=== PATIENT | male | born 1995 | race Caucasian/White ===

== ENCOUNTER 2016-06-26 14:37 | Emergency (ER) | payer BC, OTHER ==
[2016-06-26 15:00] VITALS: BP 157/87; BMI 23.6
[2016-06-26] MEDS ORDERED: TORADOL 30 MG VIAL IVP ONE (15:02)
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
--- NOTE | 2016-06-26 15:28 | RAD ---
Left wrist, three views Indication: Wrist pain and deformity after fall Findings: There is an acute fracture of the distal radius demonstrating mild volar and radial angula tion with impaction there is fracture extension into the radiocarpal joint space. The radiocarpal ar ticulation is otherwise grossly maintained. There is a mildly displaced fracture of the ulnar styloi d. Impression: Mildly displaced acute fractures of the distal radius and ulnar styloid, with extension of the radial fracture into the radiocarpal joint space. Reported By:
--- NOTE | 2016-06-26 15:29 | RAD ---
Right forearm, AP and lateral Indication: Arm pain after fall. Findings: No cortical lucency or malalignment of the radius or ulna identified. No significant soft tissue abnormality. Impression: No evidence for acute right forearm fracture or subluxation. Reported By:
--- NOTE | 2016-06-26 15:29 | RAD ---
Left forearm, AP and lateral Indication: Arm pain after fall Findings: Distal radial and ulnar styloid fractures are described separately. No acute fracture or s ubluxation of the more proximal forearm identified. Impression: Distal radial and ulnar styloid fractures. No evidence for proximal radial or ulnar inju ry. Reported By:
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
[2016-06-26] MEDS ORDERED: ZOFRAN INJ 4 MG VIAL ONE (15:37)
[2016-06-26] MEDS ORDERED: MORPHINE SULFATE INJ 4 MG ONE (15:39)
[2016-06-26] MEDS ORDERED: NEOSPORIN OINT ONE ×2 (15:42→16:29)
[2016-06-26] MEDS ORDERED: ZOFRAN INJ 4 MG VIAL IVP ONE (15:44)
[2016-06-26] MEDS ORDERED: MORPHINE SULFATE INJ 4 MG IVP ONE (15:44)
--- NOTE | 2016-06-26 15:49 | CT ---
CT left wrist without contrast Indication : Wrist pain after fall Technique: 2 mm axial images with coronal and sagittal reformatted images provided without IV contra st administration . Findings: There is an intra-articular distal radial fracture, the fracture extends into the mid radi al articular surface with mild radial distraction of the radial styloid process . Multiple smaller c omminuted fracture fragments are noted adjacent to the distal radial fracture . The fracture also ex tends in a transverse orientation within the radial metaphysis . Overall the intra-articular fractur e fragments demonstrate mild volar displacement and angulation. There is a mildly comminuted, minimally displaced fracture of the ulnar styloid process. There is no fracture of the carpus. The wrist demonstrates moderate soft tissue swelling . Impression: 1.Comminuted intra-articular fracture of the distal radius with mild radial and volar angulation and displacement of largest intra-articular fracture fragment. 2. Minimally displaced, comminuted fracture of the ulnar styloid process. Reported By:
[2016-06-26] MEDS ORDERED: ZOFRAN TAB 4 MG ONE (16:31)
[2016-06-26] MEDS ORDERED: ZOFRAN TAB 4 MG PO ONE (16:32)
== END 2016-06-26 16:42 | disposition home or self-care (01) ==
LOC: ER 14:46
DX: S62.102A Fracture of unspecified carpal bone, left wrist, initial encounter for closed fracture (principal); S50.12XA Contusion of left forearm, initial encounter; W19.XXXA Unspecified fall, initial encounter; Y92.9 Unspecified place or not applicable
CPT/HCPCS: 29105; 29125; 70450; 73090; 73100; 73200; 96365; 96374; 96375; 99283; S0181; J2270; J2405

== ENCOUNTER → 2016-06-30 | Outpatient (CLI) | payer BC ==
[2016-06-26 15:00] VITALS: BP 157/87
[2016-06-30 11:45] LABS: BASOPHILS % (AUTO) 0.6 % (0.2-1.0); EOSINOPHILS # (AUTO) 0.1 x10^3/uL (0.0-0.2); EOSINOPHILS % (AUTO) 2.6 % (0.9-2.9); HEMATOCRIT 43.6 % (42.0-54.0); HEMOGLOBIN 14.7 g/dL (13.5-18.0); LYMPHOCYTES # (AUTO) 1.2 X10^3/uL (1.3-2.9); LYMPHOCYTES % (AUTO) 24.4 % (21.0-51.0); MEAN CORPUSCULAR HEMOGLOBIN 29.3 pg (27.0-34.0); MEAN CORPUSCULAR HGB CONC 33.7 g/dL (33.0-35.0); MEAN CORPUSCULAR VOLUME 86.8 fL (80.0-100.0); MEAN PLATELET VOLUME 7.3 fL (7.4-11.0); MONOCYTES # (AUTO) 0.4 x10^3/uL (0.3-0.8); MONOCYTES % (AUTO) 8.7 % (0.0-13.0); NEUTROPHILS # (AUTO) 3.2 x10^3/uL (2.2-4.8); NEUTROPHILS % (AUTO) 63.7 % (42.0-75.0); PLATELET COUNT 243 X10^3/uL (150.0-450.0); RED BLOOD COUNT 5.02 X10^6/uL (4.7-6.0)
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
[2016-06-30 11:56] LABS: ALANINE AMINOTRANSFERASE 34 Units/L (12-78); ALBUMIN 4.1 g/dL (3.4-5.0); ALKALINE PHOSPHATASE 75 Units/L (46-116); ASPARTATE AMINO TRANSFERASE 25 Units/L (15-37); BLOOD UREA NITROGEN 26 mg/dL (7-18); CALCIUM 9.3 mg/dL (8.5-10.1); CARBON DIOXIDE 31.5 mmol/L (21-32); CHLORIDE 102 mmol/L (98-107); CREATININE 1.17 mg/dL (0.70-1.30); GLUCOSE 85 mg/dL (65-99); SODIUM 140 mmol/L (136-145); TOTAL PROTEIN 8.1 g/dL (6.4-8.2); eGFR BLACK RACES > 60 (>60); eGFR NON BLACK RACES > 60 (>60)
[2016-06-30 11:57] LABS: BILIRUBIN,URINE NEGATIVE (NEGATIVE); BLOOD/HEMOGLOBIN,URINE NEGATIVE (NEGATIVE); GLUCOSE, URINE NEGATIVE (NEGATIVE); KETONES,URINE NEGATIVE (NEGATIVE); LEUKOCYTE ESTERASE ,URINE NEGATIVE (NEGATIVE); NITRITES,URINE NEGATIVE (NEGATIVE); PH,URINE 6.5 (5.0 - 8.0); PROTEIN,URINE 1+ (NEGATIVE); UROBILINOGEN,URINE 1+ (NORMAL)
[2016-06-30 12:07] LABS: APPEARANCE,URINE CLEAR (CLEAR); BACTERIA,URINE NEGATIVE /HPF (NEGATIVE); COLOR,URINE YELLOW (YELLOW); RBC,URINE 0-1 /HPF (NEGATIVE); SQUAMOUS EPITHELIAL CELL,UR RARE /HPF (NEGATIVE)
== END ==
LOC: LAB 11:12
PROVIDERS: ATTEND Orthopaedic Surgery
DX: Z01.818 Encounter for other preprocedural examination (principal); Z01.810 Encounter for preprocedural cardiovascular examination; Z01.811 Encounter for preprocedural respiratory examination; Z79.899 Other long term (current) drug therapy; Z11.8 Encounter for screening for other infectious and parasitic diseases; B95.7 Other staphylococcus as the cause of diseases classified elsewhere; S52.512A Displaced fracture of left radial styloid process, initial encounter for closed fracture; X58.XXXA Exposure to other specified factors, initial encounter
CPT/HCPCS: 36415; 71020; 80053; 81001; 85025; 86140; 87641; 93005; 93010

== ENCOUNTER → 2016-07-03 | Day surgery (SDC) | payer BC ==
[~2016-07-03] MED LIST: ANCEF VIAL 1 GM ONE; BACTROBAN OINT ONE; BENADRYL INJ 50 MG VIAL IVP PRN; D5 LR 1000 ML 1,000 ML IV ONE; DILAUDID INJ IVP PRN; DILAUDID INJ ONE; DIPRIVAN VIAL ONE; DYLOJECT INJ ONE; FENTANYL INJ 100 mcg ONE; FENTANYL INJ 250 mcg ONE; LR 1000 ML IV 1,000 ML IV ONE; NAROPIN 0.75% ONE; NEOSTIGMINE INJ ONE; NORCURON INJ 10 MG VIAL ONE; NS 50 ML IV + SPIKE MINIBAG* 50 ML IV ONE; NS IRRIGATION 1000 ML 1,000 ML with BACITRACIN VIAL 50,000 UNT IR ONE; PHENERGAN INJ 25 MG IVP PRN; QUELICIN (OR ANECTINE) ONE; REGLAN INJ 10 MG VIAL IVP PRN; ROBINUL ONE; SUPRANE IN ONE; VERSED ONE; XYLOCAINE 1 % (PLAIN) ONE; XYLOCAINE 2% and EPINEPHRINE 1:100,000 ONE; ZOFRAN INJ 4 MG VIAL IVP PRN; ZOFRAN INJ 4 MG VIAL ONE
--- NOTE | 2016-07-03 14:31 | RAD ---
Three views of the left wrist Indication: Postoperative evaluation of left wrist Comparison: 06/26/2016 Findings: There has been interval internal fixation of the intra-articular comminuted fracture of th e distal radial metaphysis, there is very mild cortical offset of the radial styloid process fractur e fragment however the alignment of the radiocarpal joint is now anatomic. No change in mildly displ aced fracture of the ulnar styloid process. Decreasing soft tissue swelling is noted within the left wrist. Impression: 1.Interval internal fixation of comminuted, intra-articular distal radial fracture with anatomic ali gnment of the radiocarpal joint. 2.No change in mildly displaced ulnar styloid process fracture. Reported By:
[2016-07-03 17:13] VITALS: BP 158/70
== END | disposition home or self-care (01) ==
LOC: SURG1 07:59
PROVIDERS: ATTEND Orthopaedic Surgery
PROC: 0PSJ04Z Reposition Left Radius with Internal Fixation Device, Open Approach (ICD-10-PCS; principal; 2016-07-03 07:30)
DX: S52.572A Other intraarticular fracture of lower end of left radius, initial encounter for closed fracture (principal); X58.XXXA Exposure to other specified factors, initial encounter
CPT/HCPCS: 64415; 73100; 76000; A4216; A4222; J0330; J0690; J1170; J2001; J2250; J2405; J2710; J3010; J3490; J7120

== ENCOUNTER → 2016-07-16 | Outpatient (CLI) | payer BC ==
[2016-07-03 17:13] VITALS: BP 158/70
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
== END ==
LOC: RAD 13:41
PROVIDERS: ATTEND Orthopaedic Surgery
DX: S52.512A Displaced fracture of left radial styloid process, initial encounter for closed fracture (principal); X58.XXXA Exposure to other specified factors, initial encounter
CPT/HCPCS: 73100

== ENCOUNTER → 2016-08-13 | Outpatient (CLI) | payer BC, OTHER ==
[2016-07-03 17:13] VITALS: BP 158/70
--- NOTE | 2016-08-13 11:57 | RAD ---
HISTORY: Follow up fracture Study: Left wrist three views Comparison: July 16, 2016 Findings: The patient is status post open reduction and internal fixation of a distal radial fracture with a p late and multiple screws. Position and alignment is not significantly changed from the prior examina tion. No obvious callus formation is identified. There is an as yet ununited ulnar-styloid fracture also unchanged in appearance. The carpal bones appear intact and normally aligned. The limb is splin fracisco. IMPRESSION: No significant change from the prior examination Reported By:
== END ==
LOC: RAD 11:31
PROVIDERS: ATTEND Orthopaedic Surgery
DX: S52.512A Displaced fracture of left radial styloid process, initial encounter for closed fracture (principal); X58.XXXA Exposure to other specified factors, initial encounter
CPT/HCPCS: 73100